=== PATIENT | female | born 1965 | race Caucasian/White ===

== ENCOUNTER → 2017-11-30 | Outpatient (CLI) | payer OTHER ==
--- NOTE | 2017-11-30 14:42 | Diagnostic Imaging Report ---
PROCEDURE: Frontal and lateral views of the chest. COMPARISON: None. INDICATIONS: BRONCHITIS, COUGH FINDINGS: Lines/tubes: None. Lungs: The lungs are well inflated and clear. There is no evidence of pneumonia or pulmonary edema. Mild, nonspecific basilar opacities may be related to atelectasis or scarring. Pleura: There is no pleural effusion or pneumothorax. Heart and mediastinum: The heart and the mediastinum are normal. Bones: No acute bony abnormality. Multilevel degenerative changes of the thoracic spine. IMPRESSION: No evidence of infection or edema. Dictated by: Richmond Rowe M.D. on 11/30/2017 at 14:42 Electronically approved by: Richmond Rowe M.D. on 11/30/2017 at 14:42
== END ==
LOC: RAD 13:51
PROVIDERS: ATTEND Emergency Medicine
DX: J40 Bronchitis, not specified as acute or chronic (principal)
CPT/HCPCS: 71046

== ENCOUNTER → 2018-04-19 | Outpatient (CLI) | payer OTHER ==
--- NOTE | 2018-04-19 17:19 | Diagnostic Imaging Report ---
PROCEDURE:HEEL/CALCANEOUS BILATERAL INDICATION:Bilateral heel pain. COMPARISON:None. FINDINGS: No acute fracture or dislocation of the bilateral calcanei. No periosteal reaction, erosion, or abnormal soft tissue calcification. Soft tissues are unremarkable. CONCLUSION: No acute fracture or dislocation of the bilateral calcanei. Dictated by: Bk Dennis M.D. on 04/19/2018 at 17:23 Electronically approved by: Bk Dennis M.D. on 04/19/2018 at 17:23
== END ==
LOC: RAD 15:59
PROVIDERS: ATTEND Emergency Medicine
DX: M79.672 Pain in left foot (principal); M79.671 Pain in right foot

== ENCOUNTER → 2019-05-06 | Outpatient (CLI) | payer OTHER ==
--- NOTE | 2019-05-06 14:28 | Diagnostic Imaging Report ---
Exam: Lefthip series, 2 views. History: Hip pain Comparison: None Findings: AP and frog-leg images of the left hip demonstrate no acute fracture or dislocation. Alignment is anatomic. Mild degenerative changes of the left hip joint with joint space narrowing small ossified formation. Impression: No acute osseous injury. Mild left hip degenerative changes. Signed by: Ismael Albright MD on 05/06/2019 2:24 PM
== END ==
LOC: RAD 13:58
PROVIDERS: ATTEND Emergency Medicine
DX: M25.552 Pain in left hip (principal)

== ENCOUNTER → 2020-10-26 | Outpatient (CLI) | payer OTHER | LOC: CT 15:34 | PROVIDERS: ATTEND Emergency Medicine | DX: R91.1 Solitary pulmonary nodule (principal) | CPT/HCPCS: 71250 ==

== ENCOUNTER → 2021-03-22 | Outpatient (CLI) | payer OTHER | LOC: MRI 14:52 | PROVIDERS: ATTEND Emergency Medicine | DX: M25.562 Pain in left knee (principal); M17.12 Unilateral primary osteoarthritis, left knee ==

== ENCOUNTER → 2022-05-06 | Outpatient (CLI) | payer OTHER | LOC: SLEEP 19:00 | PROVIDERS: ATTEND Emergency Medicine | DX: G47.33 Obstructive sleep apnea (adult) (pediatric) (principal) | CPT/HCPCS: 95811 ==